=== PATIENT | male | born 1955 | race Caucasian/White ===

== ENCOUNTER → 2021-05-24 | Outpatient (CLI) | payer MEDICARE, OTHER ==
[~2021-05-24] MED LIST: ATOR10TA PO; CETI10TA16 PO; EXEN2AUT SQ; FINA5TAB4 PO; GABA600T7 PO; METF500T16 PO; OXYC1TAB15 PO; SENN1TAB99 PO; TRAM50TA PO; VALS1TAB14 PO
== END ==
LOC: LAB 10:01
PROVIDERS: ATTEND Surgery
DX: Z01.812 Encounter for preprocedural laboratory examination (principal); Z20.822 Contact with and (suspected) exposure to COVID-19
CPT/HCPCS: U0003

== ENCOUNTER 2021-05-26 07:23 | Inpatient (IN) | payer MEDICARE, OTHER ==
[~2021-05-26] VITALS: Ht 182.9 cm; Wt 121.2 kg
[2021-05-26] VITALS (10 sets, daily range): BP systolic 104–135; BP diastolic 55–74
[~2021-05-26 07:23] MED LIST changes: +BUPIVACAINE-EPI 0.5% 30 ML VIAL KIT. ONE; +HYDROmorphone 2 MG/ML INJ. IVP PRN; +IV RINGERS,LACTATED 1000ML 1,000 ML IV SCH; -OXYC1TAB15 PO; +PROCHLORPERAZINE 10 MG/2 ML VIAL. IVP PRN; -SENN1TAB99 PO; +cefOXitin SODIUM IV Push 1 GM VIAL. IVP PRN; +fentaNYL PF VIAL 100 MCG/2 ML VIAL IVP PRN
[2021-05-26] MEDS ORDERED: FAMOTIDINE 20 MG/2 ML VIAL ONE (08:19)
[2021-05-26] MEDS ORDERED: ROCURONIUM 50 MG/5 ML VIAL. ONE ×2 (08:19→09:56)
[2021-05-26] MEDS ORDERED: PROPOFOL 10 MG/ML (20ML) VIAL. IV ONE (08:19)
[2021-05-26] MEDS ORDERED: ONDANSETRON PF 4 MG/2 ML VIAL. ONE (08:19)
[2021-05-26] MEDS ORDERED: fentaNYL PF VIAL 250 MCG/5 ML VIAL ONE (08:19)
[2021-05-26] MEDS ORDERED: DEXAMETHASONE SOD PHOS 4 MG/ML VIAL ONE (08:19)
[2021-05-26] MEDS ORDERED: MIDAZOLAM HCL/PF 2 MG/2 ML VIAL. ONE (08:20)
[2021-05-26] MEDS ORDERED: LIDOCAINE 2% PF 5 ML VIAL. ONE (08:20)
[2021-05-26] MEDS: INSULIN LISPRO 100 UNIT/ML 3ML VIAL for OP,RR ONLY. SQ PRN ×2 (08:35→12:35)
--- NOTE | 2021-05-26 09:10 | PDOC1 ---
History and Physical Date of Admission Date of Admission DATE: 05/26/21 TIME: 09:04 Identification/Chief Complaint Chief Complaint none Source Source: Chart review, Patient History of Present Illness History of Present Illness 65 yo M underwent appropriate colonoscopy screening and identified to have transverse colon polyp which was unable to be excised by colonoscopy means. He is seen in preop and reports doing well. He denies abd pain or bowel changes. Past Medical History Cardiovascular: HTN, Hyperlipidemia Pulmonary: Other (ROSA) Endocrine: Diabetes Past Surgical History Past Surgical History: Appendectomy, Cholecystectomy Family History Family History: No Significant Social History Smoke: Quit ALCOHOL: social Current Medications Current Medications Current Medications Cefoxitin Sodium (Mefoxin) 3 gm 1X PREOP PRN IVP PRIOR TO SURGERY; Start 05/26/21 at 07:00; Status Cancel Fentanyl Citrate (Fentanyl 2ml Vial) 25 mcg PRN Q5MIN PRN IVP MILD PAIN 1-3; Start 05/26/21 at 06:00; Stop 05/26/21 at 20:00 Fentanyl Citrate (Fentanyl 2ml Vial) 50 mcg PRN Q5MIN PRN IVP MODERATE PAIN 4- 6; Start 05/26/21 at 06:00; Stop 05/26/21 at 20:00 Morphine Sulfate (Morphine Sulfate) 1 mg PRN Q10MIN PRN IVP SEVERE PAIN 7-10; Start 05/26/21 at 06:00; Stop 05/26/21 at 20:00 Ringer's Solution 1,000 ml @ 30 mls/hr Q24H IV Last administered on 05/26/21at 08:23; Start 05/26/21 at 06:00; Stop 05/26/21 at 17:59 Hydromorphone HCl (Dilaudid) 0.5 mg PRN Q10MIN PRN IVP SEVERE PAIN 7-10, 2nd CHOICE; Start 05/26/21 at 06:00; Stop 05/26/21 at 20:00 Prochlorperazine Edisylate (Compazine) 5 mg PACU PRN PRN IVP NAUSEA, MRX1; Start 05/26/21 at 06:00; Stop 05/26/21 at 20:00 Bupivacaine HCl/ Epinephrine Bitart (Sensorcain-Epi 0.5% Kit) 30 ml STK-MED ONCE .ROUTE ; Start 05/26/21 at 07:16; Stop 05/26/21 at 07:16; Status DC Insulin Human Lispro (HumaLOG VIAL for OP,RR ONLY) 0-10 units PRN Q1HR PRN SQ PER PROTOCOL Last administered on 05/26/21at 08:35; Start 05/26/21 at 07:45; Stop 05/27/21 at 07:44 Propofol (Diprivan) 200 mg STK-MED ONCE IV ; Start 05/26/21 at 08:19; Stop 05/26/21 at 08:19; Status DC Famotidine (Pepcid Vial) 20 mg STK-MED ONCE .ROUTE ; Start 05/26/21 at 08:19; Stop 05/26/21 at 08:19; Status DC Ondansetron HCl (Zofran) 4 mg STK-MED ONCE .ROUTE ; Start 05/26/21 at 08:19; Stop 05/26/21 at 08:19; Status DC Dexamethasone Sodium Phosphate (Decadron) 4 mg STK-MED ONCE .ROUTE ; Start 05/26/21 at 08:19; Stop 05/26/21 at 08:19; Status DC Rocuronium [place] (Zemuron) 50 mg STK-MED ONCE .ROUTE ; Start 05/26/21 at 08:19; Stop 05/26/21 at 08:19; Status DC Fentanyl Citrate (Fentanyl 5ml Vial) 250 mcg STK-MED ONCE .ROUTE ; Start 05/26/21 at 08:19; Stop 05/26/21 at 08:20; Status DC Lidocaine HCl (Lidocaine Pf 2% Vial) 5 ml STK-MED ONCE .ROUTE ; Start 05/26/21 at 08:20; Stop 05/26/21 at 08:20; Status DC Midazolam HCl (Versed) 2 mg STK-MED ONCE .ROUTE ; Start 05/26/21 at 08:20; Stop 05/26/21 at 08:21; Status DC Active Scripts Active Reported Diovan Hct 160-25 Mg Tablet (Valsartan/Hydrochlorothiazide) 1 Each Tablet 1 Each PO DAILY Metformin Hcl 500 Mg Tablet 500 Mg PO BIDWMEALS Tramadol Hcl 50 Mg Tablet 50 Mg PO Q6HRS PRN Gabapentin 600 Mg Tablet 400 Mg PO TID Finasteride 5 Mg Tablet 5 Mg PO DAILY Lipitor (Atorvastatin Calcium) 10 Mg Tablet 10 Mg PO HS Cetirizine Hcl 10 Mg Tablet 10 Mg PO HS Bydureon Bcise (Exenatide Microspheres) 2 Mg/0.85 Ml Auto.injct 2 Mg SQ WEEKLY Allergies Allergies: Coded Allergies: aspartame (Verified Adverse Reaction, Intermediate, 05/26/21) headache and muscle pain Physical Exam General: Alert, Oriented X3, Cooperative, No acute distress, Other (obese) HEENT: Atraumatic Lungs: Normal air movement Abdomen: Soft, No tenderness, No masses Rectal Exam: not examined Extremities: No clubbing, No cyanosis Skin: No rashes, No breakdown Neuro: Normal speech, Sensation intact Psych/Mental Status: Mental status NL, Mood NL Vitals Vitals Vital Signs Date Time Temp Pulse Resp B/P (MAP) Pulse Ox O2 Delivery O2 Flow Rate FiO2 05/26/21 08:13 97.1 106 20 96 97.1 05/26/21 08:09 135/62 Room Air Labs Labs Laboratory Tests Test 05/26/21 08:00 05/26/21 08:26 POC SARS CoV-2 Antigen Negative (NEGATIVE) Glucose (Fingerstick) 216 mg/dL (70-99) Laboratory Tests Test 05/26/21 08:00 05/26/21 08:26 POC SARS CoV-2 Antigen Negative (NEGATIVE) Glucose (Fingerstick) 216 mg/dL (70-99) Images Images CEA 2.6 CT chest no pulm nodules, enlarged thyroid CT a/p hepatomegaly, renal cysts, renal stone VTE Prophylaxis Ordered VTE Prophylaxis Devices: Yes VTE Pharmacological Prophylaxi: Contraindicated Assessment/Plan Assessment/Plan Colon polyp TO OR for laparoscopic versus open right colectomy. R/R/B/A d/w pt and pt's supportive . Risks, including, but not limited to: bleeding, infection, damage to surrounding structures, risk of anesthesia, risk of open, risk of anastomotic leak. They appear to understand, their questions are answered and they elect to proceed. Will obtain neck US to assess thyroid findings. Justifications for Admission Other Justification BRITNI TOVAR MD May 26, 2021 09:10
[2021-05-26] MEDS ORDERED: KETAMINE HCL IN NACL, ISO-OSM 50 MG/5 ML SYRINGE ONE (10:10)
[2021-05-26] MEDS ORDERED: ALBUMIN HUMAN 5% 500 ML IV ONE (10:38)
[2021-05-26] MEDS ORDERED: HYDROmorphone 2 MG/ML INJ. ONE ×2 (10:51→13:07)
[2021-05-26] MEDS ORDERED: NEOSTIGMINE METHYLSULFATE 5 MG/5 ML SYRINGE. ONE (11:36)
[2021-05-26] MEDS ORDERED: GLYCOPYRROLATE 1 MG/5 ML VIAL. ONE (11:36)
[2021-05-26] MEDS ORDERED: cefOXitin SODIUM IV Push 1 GM VIAL. IVP PRN (12:45)
[2021-05-26] MEDS ORDERED: MORPHINE SULFATE 2 MG/ML INJ. ONE (12:47)
[2021-05-26] MEDS: MORPHINE SULFATE 2 MG/ML INJ. IVP PRN ×2 (12:52→13:02)
[2021-05-26] MEDS ORDERED: MORPHINE SULFATE 30 ML IV PRN ×2 (13:00→13:36)
[2021-05-26] MEDS ORDERED: NALOXONE 0.4 MG/ML VIAL. IV PRN (13:00)
[2021-05-26] MEDS ORDERED: ONDANSETRON PF 4 MG/2 ML VIAL. IVP PRN (13:00)
[2021-05-26] MEDS ORDERED: 0.9 % SODIUM CHLORIDE 10 ML DISP.SYRIN. IV PRN (13:00)
--- NOTE | 2021-05-26 13:09 | PDOC4 ---
OPERATIVE NOTE Date: Date: May 26, 2021 Pre-Op Diagnosis: Colon polyp Post-Op Diagnosis: same Procedure Performed: laparoscopically assisted right colectomy Surgeon: Gregory Tovar Anesthesia Type: GETA plus local Blood Loss: 200 Specimans Obtained: right colon with stitch in distal end Findings: morbid obesity making procedure difficult throughout, tattoo in mid transverse colon, fatty liver, surgically absent gallbladder and appendix Complications: none Operative Note: After obtaining informed consent, patient was taken to OR, induced under GETA and prepped in the usual fashion. 5 mm ports placed umbilical, RUQ, LUQ all under laparoscopic guidance. Abdominal cavity was explored and noted as above. Tattoo identified in mid transverse colon. Large omentum made dissection difficult. Given this, open procedure indicated. Upper midline incision made with cautery. Fascia divided in midline. Right colon mobilized by dividing white line of toldt. Given short mesentery, unable to resect only transverse colon. Terminal ileum divided proximal to ileocecal valve. Transverse colon divided distal to tattoo. Mesentery taken with ligasure and middle and right colon vessels taken at origin and ligated with 0 vicryl suture. Duodenum was v isualized and uninjured. Specimen sent to pathology which demonstrated multiple polyps within specimen. Side to side stapled anastomosis created with 75 OVIDIO and sealed with TA 60. Mesentery repaired with 3 0 vicryl. Anastomosis noted to be patent, under no tension and completely viable. Gloves and instruments changed. Copious irrigation. No evidence of bleeding or other pathology. Fascia repaired with 0 looped PDS. Skin repaired with 3 0 vicryl and 4 0 monocryl with 3 0 nylon securing elsa drain in wound. Dressing placed. Patient tolerated procedure well and sent to PACU in stable condition. All counts correct. Wound class is 3. BRITNI TOVAR MD May 26, 2021 13:09
--- NOTE | 2021-05-26 13:32 | RAD ---
XR ABDOMEN 1V History: Status post laparotomy Comparison: CT abdomen and pelvis 05/12/2021 Technique: AP portable supine radiograph of the abdomen Findings: Bowel gas pattern: No abnormally dilated bowel loops. Free air: No supine evidence. Abnormal calcifications: None. Bones: Unremarkable. Other: Right upper quadrant cholecystectomy clips. Midline abdomen suspected [place] drain or surgica l dressing. Impression: 1. No acute abdominal findings. 2. Midline abdomen foreign body suspected [place] drain or surgical dressing. Electronically signed by: Dwayne Robles MD (05/26/2021 1:30 PM) [id number]
[2021-05-26] MEDS: IV NORMAL SALINE 1000ML BAG 1,000 ML IV SCH ×2 (14:00→16:29)
[2021-05-26] MEDS ORDERED: IV RINGERS,LACTATED 1000ML 1,000 ML IV SCH (14:00)
--- NOTE | 2021-05-26 15:44 | NUR ---
Patient arrived around 1352 in a bed from PACU. Morphine DIVERSIFIED CROPS I FARMWORKER set up by the PACU team and infusing with fluids running per protocol. at bedside. Incision with small amount of drainage noted and circled. Merrill drain intact. Patient stating to this nurse he cant "feel his button" and when he is awake he is rapid firing pressing his button. Education given to patient and his on DIVERSIFIED CROPS I FARMWORKER. He stated to this nurse also, "I want to be able to feel warm when I press the button and want to feel the effects from it immediately". Education again gone over on DIVERSIFIED CROPS I FARMWORKER. Since patient has gotten up to the floor he is either asleep/snoring or awake pressing his button with a pain rating of 10/10. Requests for his boots to be put on due to neuropathy pain. Dr Cowart notified. Will continue to monitor.
[2021-05-26] MEDS ORDERED: DEXTROSE 50% 25 GM / 50ML DISP.SYRIN. IV PRN (16:00)
[2021-05-26] MEDS ORDERED: IV DEXTROSE 5% 250 ML BAG. IV PRN (16:00)
--- NOTE | 2021-05-26 16:31 | PDOC2 ---
Date of Service: DATE: 05/26/21 TIME: 16:23 Chief Complaint: Chief Complain: Colonic polyp History of Present Illness: HPI: 65-year-old male who underwent laparoscopic converted to open right colectomy for colonic polyp in the transverse colon. Hospitalist service car consulted for medical management in the postoperative period. Patient currently seen bedside and is complaining of 10 out of 10 pain even after morphine CUT OFF SAW OPERATOR PIPE BLANKS. Patient is currently n.p.o. and tolerating ice chips. No active nausea vomiting. Complains of incisional and intra-abdominal pain. At this time patient denies any fevers, chest pain, palpitations or shortness of breath. No abdominal binder on at this time. Past Medical/Surgical History: PMH/PSH: Past medical history: Diabetes mellitus, hypertension, dyslipidemia, ROSA Past surgical history of cholecystectomy and appendectomy Allergies: Allergies: Coded Allergies: aspartame (Verified Adverse Reaction, Intermediate, 05/26/21) headache and muscle pain Family History: Family History: Reviewed with no relative findings in the chart Social History: Social Hisoty: Denies alcohol, tobacco or drug abuse Current Medications: Current Medications Current Medications Cefoxitin Sodium (Mefoxin) 3 gm 1X PREOP PRN IVP PRIOR TO SURGERY; Start 05/26/21 at 07:00; Status Cancel Fentanyl Citrate (Fentanyl 2ml Vial) 25 mcg PRN Q5MIN PRN IVP MILD PAIN 1-3; Start 05/26/21 at 06:00; Stop 05/26/21 at 20:00 Fentanyl Citrate (Fentanyl 2ml Vial) 50 mcg PRN Q5MIN PRN IVP MODERATE PAIN 4- 6; Start 05/26/21 at 06:00; Stop 05/26/21 at 20:00 Morphine Sulfate (Morphine Sulfate) 1 mg PRN Q10MIN PRN IVP SEVERE PAIN 7-10 L ast administered on 05/26/21at 13:02; Start 05/26/21 at 06:00; Stop 05/26/21 at 20:00 Ringer's Solution 1,000 ml @ 30 mls/hr Q24H IV Last administered on 05/26/21at 08:23; Start 05/26/21 at 06:00; Stop 05/26/21 at 17:59 Hydromorphone HCl (Dilaudid) 0.5 mg PRN Q10MIN PRN IVP SEVERE PAIN 7-10, 2nd CHOICE Last administered on 05/26/21at 13:26; Start 05/26/21 at 06:00; Stop 05/26/21 at 20:00 Prochlorperazine Edisylate (Compazine) 5 mg PACU PRN PRN IVP NAUSEA, MRX1; Start 05/26/21 at 06:00; Stop 05/26/21 at 20:00 Bupivacaine HCl/ Epinephrine Bitart (Sensorcain-Epi 0.5% Kit) 30 ml STK-MED ONCE .ROUTE Last administered on 05/26/21at 09:57; Start 05/26/21 at 07:16; Stop 05/26/21 at 07:16; Status DC Insulin Human Lispro (HumaLOG VIAL for OP,RR ONLY) 0-10 units PRN Q1HR PRN SQ P ER PROTOCOL Last administered on 05/26/21at 12:35; Start 05/26/21 at 07:45; Stop 05/26/21 at 18:00 Propofol (Diprivan) 200 mg STK-MED ONCE IV ; Start 05/26/21 at 08:19; Stop 05/26/21 at 08:19; Status DC Famotidine (Pepcid Vial) 20 mg STK-MED ONCE .ROUTE ; Start 05/26/21 at 08:19; Stop 05/26/21 at 08:19; Status DC Ondansetron HCl (Zofran) 4 mg STK-MED ONCE .ROUTE ; Start 05/26/21 at 08:19; Stop 05/26/21 at 08:19; Status DC Dexamethasone Sodium Phosphate (Decadron) 4 mg STK-MED ONCE .ROUTE ; Start 05/26/21 at 08:19; Stop 05/26/21 at 08:19; Status DC Rocuronium [place] (Zemuron) 50 mg STK-MED ONCE .ROUTE ; Start 05/26/21 at 08:19; Stop 05/26/21 at 08:19; Status DC Fentanyl Citrate (Fentanyl 5ml Vial) 250 mcg STK-MED ONCE .ROUTE ; Start 05/26/21 at 08:19; Stop 05/26/21 at 08:20; Status DC Lidocaine HCl (Lidocaine Pf 2% Vial) 5 ml STK-MED ONCE .ROUTE ; Start 05/26/21 at 08:20; Stop 05/26/21 at 08:20; Status DC Midazolam HCl (Versed) 2 mg STK-MED ONCE .ROUTE ; Start 05/26/21 at 08:20; Stop 05/26/21 at 08:21; Status DC Rocuronium [place] (Zemuron) 50 mg STK-MED ONCE .ROUTE ; Start 05/26/21 at 09:56; Stop 05/26/21 at 09:57; Status DC Ketamine HCl (Ketamine) 50 mg STK-MED ONCE .ROUTE ; Start 05/26/21 at 10:10; Stop 05/26/21 at 10:11; Status DC Albumin Human 500 ml @ As Directed STK-MED ONCE IV ; Start 05/26/21 at 10:38; Stop 05/26/21 at 10:38; Status DC Hydromorphone HCl (Dilaudid) 2 mg STK-MED ONCE .ROUTE ; Start 05/26/21 at 10:51; Stop 05/26/21 at 10:51; Status DC Neostigmine [place] (Neostigmine Methylsulfate) 5 mg STK-MED ONCE .ROUTE ; Start 05/26/21 at 11:36; Stop 05/26/21 at 11:36; Status DC Glycopyrrolate (Robinul) 1 mg STK-MED ONCE .ROUTE ; Start 05/26/21 at 11:36; Stop 05/26/21 at 11:36; Status DC Cefoxitin Sodium (Mefoxin) 3 gm 1X PREOP PRN IVP PRIOR TO PROCEDURE Last administered on 05/26/21at 09:03; Start 05/26/21 at 12:45 Morphine Sulfate (Morphine Sulfate) 2 mg STK-MED ONCE .ROUTE ; Start 05/26/21 at 12:47; Stop 05/26/21 at 12:48; Status DC Enoxaparin Sodium (Lovenox 40mg Syringe) 40 mg Q24H SQ ; Start 05/27/21 at 09:00 Sodium Chloride (Normal Saline Flush) 3 ml QSHIFT PRN IV AFTER MEDS AND BLOOD DRAWS; Start 05/26/21 at 13:00 Ringer's Solution 1,000 ml @ 1,000 mls/hr Q1H IV ; Start 05/26/21 at 14:00; Stop 05/26/21 at 14:59; Status DC Naloxone HCl (Narcan) 0.4 mg PRN Q2MIN PRN IV SEE INSTRUCTIONS; Start 05/26/21 at 13:00 Sodium Chloride 1,000 ml @ 25 mls/hr Q24H IV ; Start 05/26/21 at 14:00 Morphine Sulfate 30 ml @ 0 mls/hr CONT PRN PRN IV PER PROTOCOL Last administered on 05/26/21at 13:16; Start 05/26/21 at 13:00; Stop 05/26/21 at 13:36; Status DC Ondansetron HCl (Zofran) 4 mg PRN Q6HRS PRN IVP NAUESA, 1ST CHOICE; Start 05/26/21 at 13:00 Hydromorphone HCl (Dilaudid) 2 mg STK-MED ONCE .ROUTE ; Start 05/26/21 at 13:07; Stop 05/26/21 at 13:08; Status DC Morphine Sulfate 30 ml @ 0 mls/hr CONT PRN PRN IV PER PROTOCOL; Start 05/26/21 at 13:36; Stop 05/26/21 at 15:57; Status DC Sodium Chloride 1,000 ml @ 25 mls/hr Q24H IV ; Start 05/26/21 at 16:00 Hydromorphone HCl 30 ml @ 0 mls/hr CONT PRN PRN IV PER PROTOCOL; Start 05/26/21 at 16:00 Insulin Human Lispro (HumaLOG) 0-5 UNITS TIDWMEALS SQ ; Start 05/26/21 at 17:00 Dextrose (Dextrose 50%-Water Syringe) 12.5 gm PRN Q15MIN PRN IV SEE COMMENTS; Start 05/26/21 at 16:00 Dextrose (Iv Dextrose 5%) 250 ml PRN Q15MIN PRN IV SEE COMMENTS; Start 05/26/21 at 16:00 Active Scripts Active Reported Diovan Hct 160-25 Mg Tablet (Valsartan/Hydrochlorothiazide) 1 Each Tablet 1 Each PO DAILY Metformin Hcl 500 Mg Tablet 500 Mg PO BIDWMEALS Tramadol Hcl 50 Mg Tablet 50 Mg PO Q6HRS PRN Gabapentin 600 Mg Tablet 400 Mg PO TID Finasteride 5 Mg Tablet 5 Mg PO DAILY Lipitor (Atorvastatin Calcium) 10 Mg Tablet 10 Mg PO HS Cetirizine Hcl 10 Mg Tablet 10 Mg PO HS Bydureon Bcise (Exenatide Microspheres) 2 Mg/0.85 Ml Auto.injct 2 Mg SQ WEEKLY ROS: Review of Systems Review of System REVIEW OF SYSTEMS: GENERAL: Denies weakness SKIN: No bruising, hair changes or rashes. EYES: No blurred, double or loss of vision. NOSE AND THROAT: No history of nosebleeds, hoarseness or sore throat. HEART: No history of palpitations, chest pain or shortness of breath on exertion. LUNGS: Denies cough, hemoptysis, wheezing or shortness of breath. GASTROINTESTINAL: Positive for abdominal pain GENITOURINARY: No history of frequency, urgency, hesitancy or nocturia. NEUROLOGIC: Denies history of numbness, tingling, or tremor. PSYCHIATRIC: No history of panic, anxiety or depression. ENDOCRINE: No history of heat or cold intolerance, polyuria or polydipsia. EXTREMITIES: Denies joint pain, pain on walking or stiffness. Physical Exam: Vital Signs: Vital Signs Date Time Temp Pulse Resp B/P (MAP) Pulse Ox O2 Delivery O2 Flow Rate FiO2 05/26/21 15:15 98.8 105 18 127/73 (91) 96 Nasal Cannula 2.0 98.8 Physcial Exam: General: Well developed, well nourished, no acute distress, well appearing HEENT: Pupils equally round and reactive to light, EOMI, no discharge, normal conjunctiva Neck: Supple, no nuchal rigidity, no JVD, trachea midline, no tenderness Cardiac: RRR, no murmurs, no gallops, no rubs Chest/Lungs: CTAB, no wheeze, no rhonchi, no crackles Abdomen: soft, non-distended, no guarding, no peritoneal signs, appropriate tender to the midline incision. Surgical wound is clear dry and intact. There is no active bleeding but there is strikethrough to the dressings. Back: No tenderness Extremities: no edema, pulses intact, non-tender,capillary refill <3 sec bilateral upper and lower extremities, Neuro: Alert and oriented x 4, no focal deficits, normal speech Labs: Labs: Laboratory Tests Test 05/26/21 08:00 05/26/21 08:26 05/26/21 12:27 POC SARS CoV-2 Antigen Negative (NEGATIVE) Glucose (Fingerstick) 216 mg/dL (70-99) 243 mg/dL (70-99) Laboratory Tests Test 05/26/21 08:00 05/26/21 08:26 05/26/21 12:27 POC SARS CoV-2 Antigen Negative (NEGATIVE) Glucose (Fingerstick) 216 mg/dL (70-99) 243 mg/dL (70-99) Images: Images PROCEDURE: KUB XR ABDOMEN 1V History: Status post laparotomy Comparison: CT abdomen and pelvis 05/12/2021 Technique: AP portable supine radiograph of the abdomen Findings: Bowel gas pattern: No abnormally dilated bowel loops. Free air: No supine evidence. Abnormal calcifications: None. Bones: Unremarkable. Other: Right upper quadrant cholecystectomy clips. Midline abdomen suspected [place] drain or surgical dressing. Impression: 1. No acute abdominal findings. 2. Midline abdomen foreign body suspected [place] drain or surgical dressing. Assessment/Plan Assessment/Plan Colonic polyp status post laparoscopic converted to open right colectomy 05/26/2021 Morbid obesity History of diabetes mellitus type 2 History of hypertension History of ROSA, not currently using CPAP machine and only sleeps upright History of dyslipidemia Continue IV fluids maintenance while n.p.o. Switched over to Dilaudid CUT OFF SAW OPERATOR PIPE BLANKS 0.2 every 10 minutes on demand. No lockout or basal R-ISS and Accu-Cheks every 8 hours while n.p.o. We will advance diet as deemed appropriate per surgery PT OT modalities ordered Abdominal binder when out of bed to chair or ambulation Encourage IS for 10 minutes every hour Weight loss encouraged CBC, CMP in the morning Lovenox for DVT prophylaxis MESERET MACDONALD MD May 26, 2021 16:31
[2021-05-26] MEDS: HYDROmorphone 12mg/30ml PCA 30 ML IV PRN (16:34)
[2021-05-26] MEDS: INSULIN LISPRO 300 UNITS/3 ML VIAL. SQ SCH (16:48)
[2021-05-27 03:00] VITALS: BP 93/50
[2021-05-27 05:37] LABS: BASO % 0 % (0-3); EOS % 0 % (0-3); HEMATOCRIT 38.7 % (39.0-53.0); LYMPH # 0.5 x10^3/uL (1.0-4.8); LYMPH % 4 % (24-48); MEAN CORPUSCULAR HEMOGLOBIN 28 pg (25-35); MEAN CORPUSCULAR HGB CONC 34 g/dL (31-37); MEAN CORPUSCULAR VOLUME 84 fL (79-100); MONO # 0.9 x10^3/uL (0.0-1.1); MONO % 7 % (0-9); NEUT # 11.6 x10^3/uL (1.8-7.7); NEUT % 89 % (31-73); PLATELET COUNT 233 x10^3/uL (140-400); RED BLOOD COUNT 4.61 x10^6/uL (4.30-5.70); WHITE BLOOD COUNT 13.1 x10^3/uL (4.0-11.0)
[2021-05-27 06:04] LABS: CALCIUM 8.6 mg/dL (8.5-10.1); CREATININE 1.3 mg/dL (0.7-1.3); GFR 55.4; MAGNESIUM 2.1 mg/dL (1.8-2.4); POTASSIUM 4.2 mmol/L (3.5-5.1)
[2021-05-27 06:29] VITALS: BP 113/60
[2021-05-27] MEDS: INSULIN LISPRO 300 UNITS/3 ML VIAL. SQ SCH ×3 (08:00→17:00)
[2021-05-27] MEDS: ENOXAPARIN 40 MG/0.4 ML SYRINGE. SQ SCH (08:36)
[2021-05-27] MEDS: HYDROmorphone 12mg/30ml PCA 30 ML IV PRN (08:37)
--- NOTE | 2021-05-27 08:54 | PDOC ---
SURGICAL PROGRESS NOTE DATE: 05/27/21 TIME: 08:53 Subjective sore, improved with pain medication adjustment no nausea no flatus not up yet Vital Signs Vital Signs Date Time Temp Pulse Resp B/P (MAP) Pulse Ox O2 Delivery O2 Flow Rate FiO2 05/27/21 08:37 20 2.0 05/27/21 08:00 Nasal Cannula 05/27/21 06:29 97.8 96 113/60 (77) 95 97.8 I&O Intake and Output0 05/27/21 07:00 Intake Total 2000 ml Output Total 3300 ml Balance -1300 ml Intake IV Total 2000 ml Output Urine Total 3100 ml Estimated Blood Loss 200 ml PATIENT HAS A NICOLSA: Yes General: Alert, Oriented X3, Cooperative Abdomen: Soft, Other (dressing dry, mildly distended ) Labs Laboratory Tests Test 05/26/21 08:00 05/26/21 08:26 05/26/21 12:27 05/26/21 16:39 POC SARS CoV-2 Antigen Negative (NEGATIVE) Glucose (Fingerstick) 216 mg/dL (70-99) 243 mg/dL (70-99) 183 mg/dL (70-99) Test 05/27/21 04:10 05/27/21 06:49 White Blood Count 13.1 x10^3/uL (4.0-11.0) Red Blood Count 4.61 x10^6/uL (4.30-5.70) Hemoglobin 13.0 g/dL (13.0-17.5) Hematocrit 38.7 % (39.0-53.0) Mean Corpuscular Volume 84 fL (79-100) Mean Corpuscular Hemoglobin 28 pg (25-35) Mean Corpuscular Hemoglobin Concent 34 g/dL (31-37) Red Cell Distribution Width 15.0 % (11.5-14.5) Platelet Count 233 x10^3/uL (140-400) Neutrophils (%) (Auto) 89 % (31-73) Lymphocytes (%) (Auto) 4 % (24-48) Monocytes (%) (Auto) 7 % (0-9) Eosinophils (%) (Auto) 0 % (0-3) Basophils (%) (Auto) 0 % (0-3) Neutrophils # (Auto) 11.6 x10^3/uL (1.8-7.7) Lymphocytes # (Auto) 0.5 x10^3/uL (1.0-4.8) Monocytes # (Auto) 0.9 x10^3/uL (0.0-1.1) Eosinophils # (Auto) 0.0 x10^3/uL (0.0-0.7) Basophils # (Auto) 0.0 x10^3/uL (0.0-0.2) Sodium Level 144 mmol/L (136-145) Potassium Level 4.2 mmol/L (3.5-5.1) Chloride Level 103 mmol/L (98-107) Carbon Dioxide Level 25 mmol/L (21-32) Anion Gap 16 (6-14) Blood Urea Nitrogen 15 mg/dL (8-26) Creatinine 1.3 mg/dL (0.7-1.3) Estimated GFR (Cockcroft-Gault) 55.4 Glucose Level 160 mg/dL (70-99) Calcium Level 8.6 mg/dL (8.5-10.1) Magnesium Level 2.1 mg/dL (1.8-2.4) Glucose (Fingerstick) 164 mg/dL (70-99) Laboratory Tests Test 05/26/21 12:27 05/26/21 16:39 05/27/21 04:10 05/27/21 06:49 Glucose (Fingerstick) 243 mg/dL (70-99) 183 mg/dL (70-99) 164 mg/dL (70-99) White Blood Count 13.1 x10^3/uL (4.0-11.0) Red Blood Count 4.61 x10^6/uL (4.30-5.70) Hemoglobin 13.0 g/dL (13.0-17.5) Hematocrit 38.7 % (39.0-53.0) Mean Corpuscular Volume 84 fL (79-100) Mean Corpuscular Hemoglobin 28 pg (25-35) Mean Corpuscular Hemoglobin Concent 34 g/dL (31-37) Red Cell Distribution Width 15.0 % (11.5-14.5) Platelet Count 233 x10^3/uL (140-400) Neutrophils (%) (Auto) 89 % (31-73) Lymphocytes (%) (Auto) 4 % (24-48) Monocytes (%) (Auto) 7 % (0-9) Eosinophils (%) (Auto) 0 % (0-3) Basophils (%) (Auto) 0 % (0-3) Neutrophils # (Auto) 11.6 x10^3/uL (1.8-7.7) Lymphocytes # (Auto) 0.5 x10^3/uL (1.0-4.8) Monocytes # (Auto) 0.9 x10^3/uL (0.0-1.1) Eosinophils # (Auto) 0.0 x10^3/uL (0.0-0.7) Basophils # (Auto) 0.0 x10^3/uL (0.0-0.2) Sodium Level 144 mmol/L (136-145) Potassium Level 4.2 mmol/L (3.5-5.1) Chloride Level 103 mmol/L (98-107) Carbon Dioxide Level 25 mmol/L (21-32) Anion Gap 16 (6-14) Blood Urea Nitrogen 15 mg/dL (8-26) Creatinine 1.3 mg/dL (0.7-1.3) Estimated GFR (Cockcroft-Gault) 55.4 Glucose Level 160 mg/dL (70-99) Calcium Level 8.6 mg/dL (8.5-10.1) Magnesium Level 2.1 mg/dL (1.8-2.4) Assessment/Plan supportive care, await bowel function ambulate US pending Justicifation of Admission Dx: Justifications for Admission: Justification of Admission Dx: Yes Comments: Colon polyp ALEX AMARAL APRN May 27, 2021 08:54
--- NOTE | 2021-05-27 09:37 | RAD ---
US HEAD/NECK SOFT TISSUE History: Thyroid nodule Comparison: CT chest 05/12/2021. Technique: Multiple grayscale and color Doppler images of the thyroid gland were obtained. Findings: Right thyroid lobe: 3.6 x 6.2 x 4.3 cm. Left thyroid lobe: 4.1 x 1.8 x 2.2 cm. Isthmus: 0.9 cm. The thyroid is heterogeneous and enlarged in size. No hyperemia. There are multiple large right solid and cystic versus spongiform nodules with similar appearance and tiny calcification seen on comparis on CT. Nodule #1. Size: 3.1 x 2.6 x 2.3 cm Location: Right mid. Characteristics: Solid and cystic, isoechoic, wider than tall, circumscribed, punctate echogenic foci ACR TI-RADS risk category: TR4 (4-6 points): FNA if 1.5 cm, follow-up if 1-1.4 cm in 1, 2, 3, and 5 y ears. Disposition: Recommend FNA Nodule #2. Size: 3.1 x 2.3 x 2.4 cm Location: Right mid posterior. Characteristics: Solid and cystic, isoechoic, wider than tall, circumscribed, punctate echogenic foci ACR TI-RADS risk category: TR4 (4-6 points): FNA if 1.5 cm, follow-up if 1-1.4 cm in 1, 2, 3, and 5 y ears. Disposition: Recommend FNA Nodule #3. Size: 2.6 x 1.8 x 1.6 cm Location: Right mid medial. Characteristics: Solid and cystic, isoechoic, wider than tall, circumscribed, punctate echogenic foci ACR TI-RADS risk category: TR4 (4-6 points): FNA if 1.5 cm, follow-up if 1-1.4 cm in 1, 2, 3, and 5 y ears. Disposition: Recommend FNA IMPRESSION: 1. Enlarged heterogeneous thyroid with 3 moderately suspicious right thyroid nodules for which fine- needle aspiration is recommended. ACR Thyroid Imaging, Reporting And Data System (TI-RADS): White Paper Of The ACR TI-RADS Committee. J ournal of the [employer], volume 14, issue 5, pages 587-595 (July 2016). Electronically signed by: Dwayne Robles MD (05/27/2021 9:34 AM) [id number]
[2021-05-27 11:00] VITALS: BP 128/67
--- NOTE | 2021-05-27 11:30 | PDOC ---
[facility] PROGRESS NOTE Date of Service DOS: DATE: 05/27/21 TIME: 11:27 Chief Complaint Chief Complaint Assessment/Plan 3 enlarged thyroid nodules, FNA is recommended by radiology Colonic polyp status post laparoscopic converted to open right colectomy 05/26/2021 Morbid obesity History of diabetes mellitus type 2 History of hypertension History of ROSA, not currently using CPAP machine and only sleeps upright History of dyslipidemia Continue IV fluids maintenance while n.p.o. Switched over to Dilaudid SEA CAPTAIN 0.2 every 10 minutes on demand. No lockout or basal R-ISS and Accu-Cheks every 8 hours while n.p.o. We will advance diet as deemed appropriate per surgery PT OT modalities ordered Abdominal binder when out of bed to chair or ambulation Encourage IS for 10 minutes every hour Weight loss encouraged CBC, CMP in the morning Lovenox for DVT prophylaxis History of Present Illness History of Present Illness 65-year-old male who underwent laparoscopic converted to open right colectomy for colonic polyp in the transverse colon. Hospitalist service car consulted for medical management in the postoperative period. Patient currently seen bedside and is complaining of 10 out of 10 pain even after morphine SEA CAPTAIN. Patient is currently n.p.o. and tolerating ice chips. No active nausea vom iting. Complains of incisional and intra-abdominal pain. At this time patient denies any fevers, chest pain, palpitations or shortness of breath. No abdominal binder on at this time. 05/27/2021 No acute events overnight. Patient seen examined bedside. Pain is well controlled on SEA CAPTAIN. Glucose parameters are within range. Continue with R ISS and Accu-Cheks. Will work with PT OT today. Diet per surgery. Patient's chart, labs, images were reviewed and discussed with RN Vitals/I&O Vitals/I&O: Vital Signs Date Time Temp Pulse Resp B/P (MAP) Pulse Ox O2 Delivery O2 Flow Rate FiO2 05/27/21 08:37 20 2.0 05/27/21 08:00 Nasal Cannula 05/27/21 06:29 97.8 96 113/60 (77) 95 97.8 I & O 05/26/21 05/26/21 05/27/21 15:00 23:00 07:00 Intake Total 2000 ml Output Total 1200 ml 2100 ml Balance 800 ml -2100 ml Physical Exam General: Alert, Oriented X3, Cooperative Abdomen: Soft, Other (dressing dry, mildly distended ) Extremities: No clubbing, No cyanosis Skin: No rashes, No breakdown Labs Labs: Laboratory Tests Test 05/26/21 12:27 05/26/21 16:39 05/27/21 04:10 05/27/21 06:49 Glucose (Fingerstick) 243 mg/dL (70-99) 183 mg/dL (70-99) 164 mg/dL (70-99) White Blood Count 13.1 x10^3/uL (4.0-11.0) Red Blood Count 4.61 x10^6/uL (4.30-5.70) Hemoglobin 13.0 g/dL (13.0-17.5) Hematocrit 38.7 % (39.0-53.0) Mean Corpuscular Volume 84 fL (79-100) Mean Corpuscular Hemoglobin 28 pg (25-35) Mean Corpuscular Hemoglobin Concent 34 g/dL (31-37) Red Cell Distribution Width 15.0 % (11.5-14.5) Platelet Count 233 x10^3/uL (140-400) Neutrophils (%) (Auto) 89 % (31-73) Lymphocytes (%) (Auto) 4 % (24-48) Monocytes (%) (Auto) 7 % (0-9) Eosinophils (%) (Auto) 0 % (0-3) Basophils (%) (Auto) 0 % (0-3) Neutrophils # (Auto) 11.6 x10^3/uL (1.8-7.7) Lymphocytes # (Auto) 0.5 x10^3/uL (1.0-4.8) Monocytes # (Auto) 0.9 x10^3/uL (0.0-1.1) Eosinophils # (Auto) 0.0 x10^3/uL (0.0-0.7) Basophils # (Auto) 0.0 x10^3/uL (0.0-0.2) Sodium Level 144 mmol/L (136-145) Potassium Level 4.2 mmol/L (3.5-5.1) Chloride Level 103 mmol/L (98-107) Carbon Dioxide Level 25 mmol/L (21-32) Anion Gap 16 (6-14) Blood Urea Nitrogen 15 mg/dL (8-26) Creatinine 1.3 mg/dL (0.7-1.3) Estimated GFR (Cockcroft-Gault) 55.4 Glucose Level 160 mg/dL (70-99) Calcium Level 8.6 mg/dL (8.5-10.1) Magnesium Level 2.1 mg/dL (1.8-2.4) Comment Review of Relevant I have reviewed the following items vlad (where applicable) has been applied. Medications: Current Medications Medications (Trade) Dose Ordered Sig/Mellisa Route PRN Reason Start Time Stop Time Status Last Admin Dose Admin Cefoxitin Sodium (Mefoxin) 3 gm 1X PREOP PRN IVP PRIOR TO PROCEDURE 05/26/21 12:45 05/26/21 09:03 Enoxaparin Sodium (Lovenox 40mg Syringe) 40 mg Q24H SQ 05/27/21 09:00 05/27/21 08:36 Morphine Sulfate 30 ml @ 0 mls/hr CONT PRN PRN IV PER PROTOCOL 05/26/21 13:00 05/26/21 13:36 DC 05/26/21 13:16 Sodium Chloride 1,000 ml @ 25 mls/hr Q24H IV 05/26/21 16:00 05/26/21 16:29 Hydromorphone HCl 30 ml @ 0 mls/hr CONT PRN PRN IV PER PROTOCOL 05/26/21 16:00 05/27/21 08:37 Justifications for Admission Other Justification MESERET MACDONALD MD May 27, 2021 11:30
[2021-05-27 14:27] VITALS: BP_SYST 100; BP_SYST 145; BP_DIAS 47; BP_DIAS 71
[2021-05-27 18:01] VITALS: BP 118/55
[2021-05-27] MEDS: IV NORMAL SALINE 1000ML BAG 1,000 ML IV SCH (20:02)
[2021-05-27 23:00] VITALS: BP 116/63
[2021-05-28 03:00] VITALS: BP 135/69
--- NOTE | 2021-05-28 03:59 | NUR ---
Assisted to recliner. Reports having "disparaging" thoughts. Denies thoughts of harming self. Encouraged to call his and noted call light is available. Has TV on, laptop on w/ headphones and cell phone available. Surgical drainage remains in marked boundaries. Ice pack given for abd. Putting heating pad on left shoulder.
[2021-05-28] MEDS: IV NORMAL SALINE 1000ML BAG 1,000 ML IV SCH ×2 (06:07→14:00)
[2021-05-28 07:00] VITALS: BP 128/58
[2021-05-28] MEDS: INSULIN LISPRO 300 UNITS/3 ML VIAL. SQ SCH ×3 (08:00→17:31)
[2021-05-28] MEDS: ENOXAPARIN 40 MG/0.4 ML SYRINGE. SQ SCH (09:11)
--- NOTE | 2021-05-28 09:37 | PDOC ---
SURGICAL PROGRESS NOTE DATE: 05/28/21 TIME: 09:36 Subjective Pt with c/o incisional pain when getting out of bed, denies N/V, passing flatus and feels rumbling in stomach Vital Signs Vital Signs Date Time Temp Pulse Resp B/P (MAP) Pulse Ox O2 Delivery O2 Flow Rate FiO2 05/28/21 07:00 98.8 103 18 128/58 (81) 99 Nasal Cannula 3.0 98.8 I&O Intake and Output 05/28/21 07:00 Intake Total 2750 ml Output Total 1200 ml Balance 1550 ml Blood Product IV Normal Saline Flush 2750 ml Output Urine Total 1200 ml General: Alert, Oriented X3, Cooperative, No acute distress Abdomen: Soft, No tenderness, Other (dressing intact) Labs Laboratory Tests Test 05/26/21 12:27 05/26/21 16:39 05/27/21 04:10 05/27/21 06:49 Glucose (Fingerstick) 243 mg/dL (70-99) 183 mg/dL (70-99) 164 mg/dL (70-99) White Blood Count 13.1 x10^3/uL (4.0-11.0) Red Blood Count 4.61 x10^6/uL (4.30-5.70) Hemoglobin 13.0 g/dL (13.0-17.5) Hematocrit 38.7 % (39.0-53.0) Mean Corpuscular Volume 84 fL (79-100) Mean Corpuscular Hemoglobin 28 pg (25-35) Mean Corpuscular Hemoglobin Concent 34 g/dL (31-37) Red Cell Distribution Width 15.0 % (11.5-14.5) Platelet Count 233 x10^3/uL (140-400) Neutrophils (%) (Auto) 89 % (31-73) Lymphocytes (%) (Auto) 4 % (24-48) Monocytes (%) (Auto) 7 % (0-9) Eosinophils (%) (Auto) 0 % (0-3) Basophils (%) (Auto) 0 % (0-3) Neutrophils # (Auto) 11.6 x10^3/uL (1.8-7.7) Lymphocytes # (Auto) 0.5 x10^3/uL (1.0-4.8) Monocytes # (Auto) 0.9 x10^3/uL (0.0-1.1) Eosinophils # (Auto) 0.0 x10^3/uL (0.0-0.7) Basophils # (Auto) 0.0 x10^3/uL (0.0-0.2) Sodium Level 144 mmol/L (136-145) Potassium Level 4.2 mmol/L (3.5-5.1) Chloride Level 103 mmol/L (98-107) Carbon Dioxide Level 25 mmol/L (21-32) Anion Gap 16 (6-14) Blood Urea Nitrogen 15 mg/dL (8-26) Creatinine 1.3 mg/dL (0.7-1.3) Estimated GFR (Cockcroft-Gault) 55.4 Glucose Level 160 mg/dL (70-99) Calcium Level 8.6 mg/dL (8.5-10.1) Magnesium Level 2.1 mg/dL (1.8-2.4) Test 05/27/21 17:49 05/27/21 23:50 05/28/21 06:05 Glucose (Fingerstick) 190 mg/dL (70-99) 143 mg/dL (70-99) 126 mg/dL (70-99) Laboratory Tests Test 05/27/21 17:49 05/27/21 23:50 05/28/21 06:05 Glucose (Fingerstick) 190 mg/dL (70-99) 143 mg/dL (70-99) 126 mg/dL (70-99) Assessment/Plan s/p right colon OOB PO pain meds Justicifation of Admission Dx: Justifications for Admission: Justification of Admission Dx: Yes BRITNI TOVAR MD May 28, 2021 09:37
--- NOTE | 2021-05-28 10:00 | NUR ---
Singh catheter removed. Encourage po fluids. Cont. monitor.
--- NOTE | 2021-05-28 11:00 | NUR ---
Pt able to void 400cc into urinal.
[2021-05-28 11:14] VITALS: BP 120/57
[2021-05-28] MEDS: oxyCODONE/APAP 5/325 1 TAB TABLET PO PRN (12:23)
[2021-05-28] MEDS: DOCUSATE SODIUM 100 MG CAPSULE. PO SCH (12:23)
--- NOTE | 2021-05-28 13:32 | PDOC ---
[facility] [facility] PROGRESS NOTE Date of Service DOS: DATE: 05/28/21 TIME: 13:30 Chief Complaint Chief Complaint Assessment/Plan 3 enlarged thyroid nodules, FNA is recommended by radiology Colonic polyp status post laparoscopic converted to open right colectomy 05/26/2021 Morbid obesity History of diabetes mellitus type 2 History of hypertension History of ROSA, not currently using CPAP machine and only sleeps upright History of dyslipidemia Continue IV fluids maintenance while n.p.o. Switched over to Dilaudid INDUSTRIAL MAINTENANCE MECHANIC 0.2 every 10 minutes on demand. No lockout or basal R-ISS and Accu-Cheks every 8 hours while n.p.o. We will advance diet as deemed appropriate per surgery PT OT modalities ordered Abdominal binder when out of bed to chair or ambulation Encourage IS for 10 minutes every hour Weight loss encouraged CBC, CMP in the morning Lovenox for DVT prophylaxis History of Present Illness History of Present Illness 65-year-old male who underwent laparoscopic converted to open right colectomy for colonic polyp in the transverse colon. Hospitalist service car consulted for medical management in the postoperative period. Patient currently seen bedside and is complaining of 10 out of 10 pain even after morphine INDUSTRIAL MAINTENANCE MECHANIC. Patient is currently n.p.o. and tolerating ice chips. No active nausea vom iting. Complains of incisional and intra-abdominal pain. At this time patient denies any fevers, chest pain, palpitations or shortness of breath. No abdominal binder on at this time. 05/27/2021 No acute events overnight. Patient seen examined bedside. Pain is well controlled on INDUSTRIAL MAINTENANCE MECHANIC. Glucose parameters are within range. Continue with R ISS and Accu-Cheks. Will work with PT OT today. Diet per surgery. Patient's chart, labs, images were reviewed and discussed with RN 05/28/2021 No acute events overnight. Patient seen examined bedside. Appropriate incisional pain when ambulating. Continue with PT OT modalities. Physical therapy has recommended home with home health but family and patient is denying at this time. Transition to p.o. pain meds at this time. Clear liquid diet per surgery. Sugars have been well controlled. Patient's chart, labs, images were reviewed and discussed with RN Vitals/I&O Vitals/I&O: Vital Signs Date Time Temp Pulse Resp B/P (MAP) Pulse Ox O2 Delivery O2 Flow Rate FiO2 05/28/21 12:23 Room Air 05/28/21 11:14 98.1 92 18 120/57 (78) 95 3.0 98.1 I & O 05/27/21 05/27/21 05/28/21 15:00 23:00 07:00 Intake Total 2750 ml Output Total 1200 ml Balance -1200 ml 2750 ml Physical Exam General: Alert, Oriented X3, Cooperative, No acute distress Abdomen: Soft, No tenderness, Other (dressing intact) Extremities: No clubbing, No cyanosis Skin: No rashes, No breakdown Labs Labs: Laboratory Tests Test 05/27/21 17:49 05/27/21 23:50 05/28/21 06:05 05/28/21 11:40 Glucose (Fingerstick) 190 mg/dL (70-99) 143 mg/dL (70-99) 126 mg/dL (70-99) 159 mg/dL (70-99) Comment Review of Relevant I have reviewed the following items vlad (where applicable) has been applied. Medications: Current Medications Medications (Trade) Dose Ordered Sig/Mellisa Route PRN Reason Start Time Stop Time Status Last Admin Dose Admin Oxycodone/ Acetaminophen (Percocet 5/325) 1 tab PRN Q4HRS PRN PO PAIN 05/28/21 09:45 05/28/21 12:23 Docusate Sodium (Colace) 100 mg DAILY PO 05/28/21 10:00 05/28/21 12:23 Justifications for Admission Other Justification MESERET MACDONALD MD May 28, 2021 13:32
[2021-05-28 14:49] VITALS: BP 128/63
--- NOTE | 2021-05-28 15:50 | NUR ---
Transferred pt from room 448 to room 430. Pt ambulated with steady gait. Tolerated it well. Sitting on edge of bed at this time.
--- NOTE | 2021-05-28 15:51 | NUR ---
Received patient transfer from [address] [place] [address], report given by MAHESH Silva.
[2021-05-28 19:00] VITALS: BP 128/89
[2021-05-28] MEDS: HYDROmorphone 12mg/30ml PCA 30 ML IV PRN (20:48)
[2021-05-28 23:00] VITALS: BP 149/70
[2021-05-29 03:00] VITALS: BP 154/73
[2021-05-29] MEDS ORDERED: CALCIUM CARBONATE 500 MG TAB.CHEW PO PRN ×2 (04:15)
[2021-05-29 07:00] VITALS: BP 136/68
[2021-05-29] MEDS: INSULIN LISPRO 300 UNITS/3 ML VIAL. SQ SCH ×2 (07:26→11:59)
--- NOTE | 2021-05-29 08:27 | PDOC ---
SURGICAL PROGRESS NOTE DATE: 05/29/21 TIME: 08:26 Subjective having stool no nausea needs to go home Vital Signs Vital Signs Date Time Temp Pulse Resp B/P (MAP) Pulse Ox O2 Delivery O2 Flow Rate FiO2 05/29/21 07:00 97.6 106 18 136/68 (90) 98 Nasal Cannula 2.0 97.6 I&O Intake and Output 05/29/21 06:59 Intake Total 480 ml Output Total 2250 ml Balance -1770 ml Intake Oral 480 ml Output Urine Total 2250 ml # Bowel Movements 2 General: Alert, Oriented X3, Cooperative Abdomen: Soft, Other (incision intact) Labs Laboratory Tests Test 05/27/21 17:49 05/27/21 23:50 05/28/21 06:05 05/28/21 11:40 Glucose (Fingerstick) 190 mg/dL (70-99) 143 mg/dL (70-99) 126 mg/dL (70-99) 159 mg/dL (70-99) Test 05/28/21 17:20 05/28/21 20:31 05/29/21 07:18 Glucose (Fingerstick) 198 mg/dL (70-99) 188 mg/dL (70-99) 145 mg/dL (70-99) Laboratory Tests Test 05/28/21 11:40 05/28/21 17:20 05/28/21 20:31 05/29/21 07:18 Glucose (Fingerstick) 159 mg/dL (70-99) 198 mg/dL (70-99) 188 mg/dL (70-99) 145 mg/dL (70-99) Assessment/Plan s/p resection advance diet if tolerating possible discharge later today will need thyroid FNA as outpt Justicifation of Admission Dx: Justifications for Admission: Justification of Admission Dx: Yes ALEX AMARAL APRN May 29, 2021 08:27
--- NOTE | 2021-05-29 08:29 | DISCH ---
DISCHARGE INSTRUCTIONS Condition on Discharge Condition on Discharge: Stable Activity After Discharge Activity Instructions for Disc: Activity as tolerated Other activity instructions: no lifting over 20lb Lifting Instructions after Dis: No heavy lifting, No pulling or pushing Driving Instructions after Dis: Do not drive Diet after Discharge Diet after Discharge: Diabetic No Calorie Level Wound Incision Care Wound/Incision Care: Change dressing, May get incision wet Contacting the after DC Call your doctor for: Concerns you may have Follow-Up Follow up with: Dr Wall 2 weeks, call to schedule [phone] ALEX AMARAL APRN May 29, 2021 08:28
[2021-05-29] MEDS: DOCUSATE SODIUM 100 MG CAPSULE. PO SCH (08:30)
[2021-05-29] MEDS: ENOXAPARIN 40 MG/0.4 ML SYRINGE. SQ SCH (08:30)
[2021-05-29] MEDS ORDERED: traMADol 50 MG TABLET PO PRN (08:30)
[2021-05-29] MEDS: oxyCODONE/APAP 5/325 1 TAB TABLET PO PRN (08:37)
[2021-05-29] MEDS ORDERED: LOSARTAN POTASSIUM 50 MG TABLET. PO SCH (09:00)
[2021-05-29] MEDS ORDERED: FINASTERIDE 5 MG TABLET. PO SCH (09:00)
[2021-05-29] MEDS ORDERED: hydroCHLOROthiazide 25 MG TABLET PO SCH (09:00)
[2021-05-29] MEDS ORDERED: GABAPENTIN 400 MG CAPSULE. PO SCH (09:00)
[2021-05-29 10:37] LABS: BASO % 0 % (0-3); EOS % 0 % (0-3); HEMATOCRIT 36.7 % (39.0-53.0); HEMOGLOBIN 12.4 g/dL (13.0-17.5); LYMPH # 0.5 x10^3/uL (1.0-4.8); LYMPH % 5 % (24-48); MEAN CORPUSCULAR HEMOGLOBIN 28 pg (25-35); MEAN CORPUSCULAR HGB CONC 34 g/dL (31-37); MEAN CORPUSCULAR VOLUME 82 fL (79-100); MONO # 0.5 x10^3/uL (0.0-1.1); MONO % 5 % (0-9); NEUT # 8.6 x10^3/uL (1.8-7.7); NEUT % 89 % (31-73); PLATELET COUNT 251 x10^3/uL (140-400); RED BLOOD COUNT 4.48 x10^6/uL (4.30-5.70); WHITE BLOOD COUNT 9.7 x10^3/uL (4.0-11.0)
[2021-05-29 10:48] VITALS: BP 132/66
[2021-05-29 10:50] LABS: CALCIUM 9.2 mg/dL (8.5-10.1); CREATININE 1.2 mg/dL (0.7-1.3); GFR 60.8; MAGNESIUM 2.3 mg/dL (1.8-2.4); POTASSIUM 4.1 mmol/L (3.5-5.1)
--- NOTE | 2021-05-29 13:01 | PDOC ---
[facility] [facility] PROGRESS NOTE Date of Service DOS: DATE: 05/29/21 TIME: 13:00 Chief Complaint Chief Complaint Assessment/Plan 3 enlarged thyroid nodules, FNA is recommended by radiology Colonic polyp status post laparoscopic converted to open right colectomy 05/26/2021 Morbid obesity History of diabetes mellitus type 2 History of hypertension History of ROSA, not currently using CPAP machine and only sleeps upright History of dyslipidemia Continue IV fluids maintenance while n.p.o. Switched over to Dilaudid EDGING MACHINE OPERATOR 0.2 every 10 minutes on demand. No lockout or basal R-ISS and Accu-Cheks every 8 hours while n.p.o. We will advance diet as deemed appropriate per surgery PT OT modalities ordered Abdominal binder when out of bed to chair or ambulation Encourage IS for 10 minutes every hour Weight loss encouraged CBC, CMP in the morning Lovenox for DVT prophylaxis History of Present Illness History of Present Illness 65-year-old male who underwent laparoscopic converted to open right colectomy for colonic polyp in the transverse colon. Hospitalist service car consulted for medical management in the postoperative period. Patient currently seen bedside and is complaining of 10 out of 10 pain even after morphine EDGING MACHINE OPERATOR. Patient is currently n.p.o. and tolerating ice chips. No active nausea vom iting. Complains of incisional and intra-abdominal pain. At this time patient denies any fevers, chest pain, palpitations or shortness of breath. No abdominal binder on at this time. 05/27/2021 No acute events overnight. Patient seen examined bedside. Pain is well controlled on EDGING MACHINE OPERATOR. Glucose parameters are within range. Continue with R ISS and Accu-Cheks. Will work with PT OT today. Diet per surgery. Patient's chart, labs, images were reviewed and discussed with RN 05/28/2021 No acute events overnight. Patient seen examined bedside. Appropriate incisional pain when ambulating. Continue with PT OT modalities. Physical therapy has recommended home with home health but family and patient is denying at this time. Transition to p.o. pain meds at this time. Clear liquid diet per surgery. Sugars have been well controlled. Patient's chart, labs, images were reviewed and discussed with RN 05/29/2021 No acute events tonight. Patient seen examined bedside. AF and VSS. Sugars are well controlled. Patient tolerated breakfast. Pain is well controlled only O2 when ambulating. Agree with discharge after tolerating lunch per surgery. Thank you for allowing me to care for this patient alongside with you in the postoperative period. Vitals/I&O Vitals/I&O: Vital Signs Date Time Temp Pulse Resp B/P (MAP) Pulse Ox O2 Delivery O2 Flow Rate FiO2 05/29/21 10:48 97.8 98 18 132/66 (88) 96 Nasal Cannula 2.0 97.8 I & O 05/28/21 05/28/21 05/29/21 15:00 23:00 07:00 Intake Total 240 ml 240 ml Output Total 1400 ml 850 ml Balance -1160 ml 240 ml -850 ml Physical Exam General: Alert, Oriented X3, Cooperative Abdomen: Soft, Other (incision intact) Extremities: No clubbing, No cyanosis Skin: No rashes, No breakdown Labs Labs: Laboratory Tests Test 05/28/21 17:20 05/28/21 20:31 05/29/21 07:18 05/29/21 10:00 Glucose (Fingerstick) 198 mg/dL (70-99) 188 mg/dL (70-99) 145 mg/dL (70-99) White Blood Count 9.7 x10^3/uL (4.0-11.0) Red Blood Count 4.48 x10^6/uL (4.30-5.70) Hemoglobin 12.4 g/dL (13.0-17.5) Hematocrit 36.7 % (39.0-53.0) Mean Corpuscular Volume 82 fL (79-100) Mean Corpuscular Hemoglobin 28 pg (25-35) Mean Corpuscular Hemoglobin Concent 34 g/dL (31-37) Red Cell Distribution Width 15.0 % (11.5-14.5) Platelet Count 251 x10^3/uL (140-400) Neutrophils (%) (Auto) 89 % (31-73) Lymphocytes (%) (Auto) 5 % (24-48) Monocytes (%) (Auto) 5 % (0-9) Eosinophils (%) (Auto) 0 % (0-3) Basophils (%) (Auto) 0 % (0-3) Neutrophils # (Auto) 8.6 x10^3/uL (1.8-7.7) Lymphocytes # (Auto) 0.5 x10^3/uL (1.0-4.8) Monocytes # (Auto) 0.5 x10^3/uL (0.0-1.1) Eosinophils # (Auto) 0.0 x10^3/uL (0.0-0.7) Basophils # (Auto) 0.0 x10^3/uL (0.0-0.2) Sodium Level 147 mmol/L (136-145) Potassium Level 4.1 mmol/L (3.5-5.1) Chloride Level 110 mmol/L (98-107) Carbon Dioxide Level 17 mmol/L (21-32) Anion Gap 20 (6-14) Blood Urea Nitrogen 22 mg/dL (8-26) Creatinine 1.2 mg/dL (0.7-1.3) Estimated GFR (Cockcroft-Gault) 60.8 Glucose Level 172 mg/dL (70-99) Calcium Level 9.2 mg/dL (8.5-10.1) Magnesium Level 2.3 mg/dL (1.8-2.4) Test 05/29/21 11:45 Glucose (Fingerstick) 158 mg/dL (70-99) Comment Review of Relevant I have reviewed the following items vlad (where applicable) has been applied. Medications: Current Medications Medications (Trade) Dose Ordered Sig/Mellisa Route PRN Reason Start Time Stop Time Status Last Admin Dose Admin Calcium Carbonate/ Glycine (Tums) 500 mg PRN AFTMEALHC PRN PO INDIGESTION 05/29/21 04:15 05/29/21 04:10 Finasteride (Proscar) 5 mg DAILY PO 05/29/21 09:00 05/29/21 08:34 Gabapentin (Neurontin) 400 mg TID PO 05/29/21 09:00 05/29/21 08:41 Losartan Potassium (Cozaar) 100 mg DAILY PO 05/29/21 09:00 05/29/21 08:41 Hydrochlorothiazide (Hydrodiuril) 25 mg DAILY PO 05/29/21 09:00 05/29/21 08:41 Justifications for Admission Other Justification MESERET MACDONALD MD May 29, 2021 13:01
[2021-05-29] MEDS ORDERED: SENN1TAB99 PO (13:32)
[2021-05-29] MEDS ORDERED: OXYC1TAB15 PO (13:32)
--- NOTE | 2021-05-29 14:21 | NUR ---
Pt recieved discharge orders and instructions on follow up and incision care. PT taken by wheelchair to main entrance where his ride awaited.
[2021-05-29] MEDS ORDERED: metFORMIN 500 MG TABLET PO SCH (17:00)
--- NOTE | 2021-05-31 15:07 | PATHOLOGY ---
[facility] Accession Number: [id number] . 01 Material submitted: . PART A: colon - RIGHT COLON STITCH DISTAL COLON. Modifiers: right, distal PART B: abdomen - OMENTUM. Modifiers: OMENTUM . 01 Clinical history: . COLON POLYP OPEN COLECTOMY T.I. 13CM . A: CECUM + RT COLON- 30CM POLYP 1.8CM-6CM FROM DISTAL KENNETH SMALLER POLYP NEAR DISTAL MARGIN 0.5 CLOSEST TO MARGIN- 25CM 0.4 BETWEEN MASS AND POLYP 5CM FROM DISTAL MARGIN . 02 Frozen section diagnosis: . GROSS INTRAOPERATIVE CONSULTATION: (Dieudonne Whitney M.D.): . A. Terminal ileum, ileocecal valve, cecum and right colon, right hemicolectomy: - 1.8 cm pinkish-ware polypoid lesion noted in the right colon, 6 cm from the distal margin. . The specimen is demonstrated to Dr. Wall intraoperatively. . Gross intraoperative consultation performed at [facility], [address] [place] [address]. . . GROSS DESCRIPTION: A. Received fresh from the operating room labeled "right colon - stitch distal colon" is a right hemicolectomy specimen which measures: terminal ileum 13 cm and cecum/right colon - 30 cm. Both the proximal and distal margins are stapled closed. The distal margin is noted with a suture. The appendix is absent. The serosal surface of the specimen is glistening light pinkish-ware. There are focal fibrous adhesions noted involving the adipose tissue and the serosa in the cecum. Opening the bowel along the antimesenteric aspect reveals light pinkish-ware mucosa with the typical folds in the terminal ileum. No lesions are identified. The ileocecal valve has a slightly bosselated pinkish-ware appearance and is unremarkable. The mucosa of the cecum and right colon demonstrates the typical folds and is pinkish-ware and otherwise unremarkable. Located 6 cm from the distal margin is an irregularly shaped ware polyp which measures 1.8 cm in maximum dimension. The mass is associated with tattooing. Two smaller polyps are identified distal to the larger polyp. The first measures 0.4 cm and is located 5 cm from the distal margin and the second measures 0.5 cm in diameter and is located 2.5 cm from the distal margin. (MLK/db/chief petroleum engineer; 05/26/2021) IND/LBQ . 02 Diagnosis: A. Distal ileum, cecum, and ascending colon with attached mesocolon, right hemicolectomy: - Tubulovillous adenoma, predominantly tubular, of distal ascending colon, measuring approximately 1.8 cm in greatest dimension. - Tubulovillous adenoma is approximately 6.0 cm from the closest (distal) margin of resection. - Focal tattooing of colon adjacent to tubulovillous adenoma. - Twenty-four mesocolic lymph nodes negative for tumor (0/24). - Additional tubular adenomas of right colon (8), the largest measuring 0.9 cm in greatest dimension. - Adiposity of ileocecal valve. - Absence of appendix. - Serosal adhesions of cecal region. . B. Segment of omentum, resection: - Single small omental lymph node negative for tumor. - Recent hemorrhage, focal. . (JPM:caridad; 05/31/2021) MBR 05/31/2021 1500 Local . 02 Comment: There is no evidence of malignancy. (ANSELMOM:caridad; 05/31/2021) . 02 Electronically signed: . Keyur Colon MD, Pathologist NPI- [id number] . 01 Gross description: . A. SEE INTRAOPERATIVE CONSULTATION GROSS DESCRIPTION. . A. The specimen is received in formalin, labeled "Stan Cano, right colon, stitch distal colon". Received is a right hemicolectomy specimen measuring 35.0 cm in overall length, with 2 stapled marginsm, and up to 12.0 cm of attached mesentery. The specimen is comprised of a portion of terminal ileum, measuring 13.0 cm in length x 3.9 cm in open circumference, and a portion of cecum/colon measuring 30.0 cm in length x 7.5-10.1 cm in open circumference. An appendix is not grossly identified. The scant amount of the serosa appears ware-pink, smooth and glistening. The external surface is almost completely covered by an extensive amount of pericolic adipose tissue. . The mucosa displays a previously bisected, ware-pink, irregularly-shaped, multilobulated, exophytic, granular polypoid lesion measuring up to 1.8 cm in greatest dimension, located 4.5 cm from the distal margin, 27.0 cm from the proximal margin, and 7.0 centimeters from the closest mesenteric margin. Sectioning reveals the mass to be confined to the mucosa, with no involvement of the lamina propria. The colon mucosa also displays multiple ware-pink, sessile polyps, ranging in size from 0.3-0.6 cm, in greatest dimension. The polyps are located up to 2.5 cm from the distal margin. The remaining uninvolved mucosa appears ware-pink, and folded. The terminal ileum mucosa appears ware-pink, folded and is devoid of masses or lesions. . Sectioning through the pericolic adipose tissue yields 27 candidate lymph nodes, ranging in size from 0.2-1.1 cm, in greatest dimension. Photographs are obtained. Heel Finisher sections are submitted as follows: A1-A2: Distal margin, en face A3: Proximal margin, en face A4-A9: Mass, entirely A10: 4 colon polyps A11: 4 colon polyps A12: 3 colon polyps A13: Uninvolved colon A14: Cecal valve, represented A15: Uninvolved terminal ileum A16-A17: Closest mesenteric margin to mass, en face A18: 5 candidate lymph nodes A19: 5 candidate lymph nodes A20: 5 candidate lymph nodes A21: 5 candidate lymph nodes A22: 3 candidate lymph nodes A23: 2 candidate lymph nodes A24: 2 candidate lymph nodes, bisected and differentially inked . B. The specimen is received in formalin, labeled "Stan Cano, omentum". Received is an unoriented, irregularly-shaped, portion of omentum, measuring 49.4 x 26.2 x 2.5 cm. The omentum appears ware yellow, multilobulated, and focally hemorrhagic. Sectioning reveals ware-yellow, hemorrhagic, unremarkable fibrofatty cut surfaces. Heel Finisher sections are submitted in cassettes B1-B10. (JGG; 05/27/2021) JGG/LBQ 05/31/2021 1149 Local . 02 Pathologist provided ICD-10: D12.2, D12.6, K66.0, K66.1 . 02 CPT . 435364, 449980, [id number] Specimen Comment: A courtesy copy of this report has been sent to [phone], [phone] Specimen Comment: [phone] Specimen Comment: Report sent to / DR MCKOY Performed at: 01 [facility] [address] [facility] [address], [place] [id number] MD David Mcwilliams MD Phone: [phone] Performed at: [facility] [address] [place], [place] [id number] MD Keyur Colon MD Phone: [phone]
== END 2021-05-29 14:22 | disposition home or self-care (01) | DRG 331 ==
LOC: OPSVCIP 07:23 → 4 SOUTHEST 13:45 → 4 NORTH 05-28 15:45
PROVIDERS: ADMIT Surgery; ATTEND Surgery
PROC: 0DJD4ZZ Inspection of Lower Intestinal Tract, Percutaneous Endoscopic Approach (ICD-10-PCS; 2021-05-26)
PROC: 0DTF0ZZ Resection of Right Large Intestine, Open Approach (ICD-10-PCS; principal; 2021-05-26 09:00)
DX: K63.5 Polyp of colon (principal); E11.9 Type 2 diabetes mellitus without complications; E66.01 Morbid (severe) obesity due to excess calories; E78.5 Hyperlipidemia, unspecified; I10 Essential (primary) hypertension; K76.0 Fatty (change of) liver, not elsewhere classified; Z53.31 Laparoscopic surgical procedure converted to open procedure; G47.33 Obstructive sleep apnea (adult) (pediatric); Z68.36 Body mass index [BMI] 36.0-36.9, adult; Z88.8 Allergy status to other drugs, medicaments and biological substances
CPT/HCPCS: 36415; 74018; 76536; 80048; 82962; 83735; 85025; 88307; 88309; A4314; A4930; A6219; A6402; J0694; J1100; J1170; J1650; J1815; J2250; J2270; J2405; J2704; J2710; J3010; J3490; J7030; J7120; P9045; U0003; 97110-GP; 97116-GP; 97530-GO; G0378

== ENCOUNTER → 2021-08-06 | Outpatient (CLI) | payer MEDICARE, OTHER ==
[~2021-08-06] MED LIST changes: -BUPIVACAINE-EPI 0.5% 30 ML VIAL KIT. ONE; -HYDROmorphone 2 MG/ML INJ. IVP PRN; -IV RINGERS,LACTATED 1000ML 1,000 ML IV SCH; +LIDOCAINE 1% Multi-Dose 20 ML VIAL. INJ ONE; +OXYC1TAB15 PO; -PROCHLORPERAZINE 10 MG/2 ML VIAL. IVP PRN; +SENN1TAB99 PO; -cefOXitin SODIUM IV Push 1 GM VIAL. IVP PRN; -fentaNYL PF VIAL 100 MCG/2 ML VIAL IVP PRN
--- NOTE | 2021-08-06 13:07 | RAD ---
EXAM: Sonographic guided thyroid fine-needle aspiration. HISTORY: 65-year-old male presents for sonographic guided fine-needle aspiration of 3 dominant right thyroid nodules demonstrated on a study performed 05/26/2021. TECHNIQUE: The risks of the procedure discussed with the patient and written and verbal consent was o btained. A timeout was performed. Sonographic imaging of the with a thyroid was performed and the dom inant lesions of concern are identified. These measures 3.1 cm within the superior right thyroid lobe , 3.1 cm within the mid thyroid lobe, and 2.6 cm within the inferior right thyroid lobe. The skin ove rlying these lesions was sterilely prepped, draped and infiltrated with 1 percent lidocaine. Multiple passes were made through the lesions with 25-gauge needles. The aspirate was submitted to the pathol ogist for interpretation. Sterile bandages were placed at the needle entry sites. The patient tolerat ed the procedure without complication and was discharged in stable condition. IMPRESSION: Sonographic guided fine-needle aspiration of 3 dominant thyroid nodules, described above. An addendum to this report will be submitted when pathology results are available. Electronically signed by: Adelaida Serrano MD (08/06/2021 1:04 PM) [id number]
== END | disposition home or self-care (01) ==
LOC: US 12:59
PROVIDERS: ATTEND Physician Assistant
DX: E04.2 Nontoxic multinodular goiter (principal); I10 Essential (primary) hypertension; E78.00 Pure hypercholesterolemia, unspecified; E66.9 Obesity, unspecified; M19.90 Unspecified osteoarthritis, unspecified site; G47.30 Sleep apnea, unspecified; Z90.49 Acquired absence of other specified parts of digestive tract; Z98.890 Other specified postprocedural states; Z79.899 Other long term (current) drug therapy; Z87.891 Personal history of nicotine dependence; Z88.8 Allergy status to other drugs, medicaments and biological substances
CPT/HCPCS: 10005; 10006; C1819